=== PATIENT | female | born 1995 | race Caucasian/White ===

== ENCOUNTER 2017-03-19 17:05 | Emergency (ER) | payer OTHER ==
[~2017-03-19] VITALS: Ht 170.2 cm; Wt 103.9 kg
[~2017-03-19 17:05] MED LIST: ATARAX10 MG PO; DESYREL100 MG PO; HYDROXYZINE PAM25 MG PO; LAMICTAL100 MG PO; LAMICTAL150 M1 PO; LAMOTRIGINE25 MG PO; NAPROSYN500 MG PO; RISPERIDONE2 MG PO; SAPHRIS10 MG SL; TRAZODONE HCL50 MG PO
[2017-03-19 17:57] VITALS: BP 131/93
[2017-03-19 18:23] LABS: HEMATOCRIT 39.5 % (36.0-46.0); MCH 28.6 PG (29.0-34.0); MCHC 32.9 G/DL (30.0-36.0); MCV 86.8 FL (83-99); PLATELET COUNT 299 K/uL (156-360); RBC DIS.WIDTH-CV 13.2 % (11.8-14.6); RBC DIS.WIDTH-SD 41.3 % (39-53); RED BLOOD COUNT 4.55 M/uL (3.80-5.20); WHITE BLOOD COUNT 11.3 K/uL (4.1-10.2)
[2017-03-19 18:32] LABS: CHLORIDE 106 mEq/L (99-109); SODIUM 139 mEq/L (136-147)
[2017-03-19 18:34] LABS: GLUCOSE 108 mg/dL (70-99)
[2017-03-19 18:37] LABS: SERUM ETHYL ALCOHOL < 10 mg/dL
[2017-03-19 18:38] LABS: GFR ESTIMATE (CALCULATED) > 59 mL/min/
[2017-03-19 18:39] LABS: UREA NITROGEN (BUN) 8 mg/dL (9-23)
[2017-03-19 19:23] LABS: COCAINE NEGATIVE (150 ng/mL); METHAMPHETAMINE NEGATIVE (500 ng/mL); PHENCYCLIDINE NEGATIVE (25 ng/mL); THC CANNABINOIDS NEGATIVE (50 ng/mL)
[2017-03-19 19:24] LABS: AMPHETAMINE NEGATIVE (500 ng/mL); BARBITURATES NEGATIVE (200 ng/mL); BENZODIAZEPINES NEGATIVE (150 ng/mL); BUPRENORPHINE NEGATIVE (10 ng/mL); METHADONE NEGATIVE (200 ng/mL); OPIATES (MORPHINE) NEGATIVE (100 ng/mL); OXYCODONE NEGATIVE (100 ng/mL); PROPOXYPHENE NEGATIVE (300 ng/mL); TRICYCLIC ANTIDEPRESSANTS NEGATIVE (300 ng/mL)
== END 2017-03-19 22:20 | disposition left against medical advice (07) ==
LOC: EME 17:05
DX: R68.89 Other general symptoms and signs (principal); Z53.21 Procedure and treatment not carried out due to patient leaving prior to being seen by health care provider
CPT/HCPCS: 80048; 85027; G0480

== ENCOUNTER 2017-05-30 10:46 | Emergency (ER) | payer OTHER ==
[~2017-05-30] VITALS: Ht 165.1 cm; Wt 104.4 kg
[2017-05-30 11:18] LABS: BASOPHIL (%) 0.4 % (0-1); EOSINOPHIL (%) 0.1 % (0-5); HEMATOCRIT 38.4 % (36.0-46.0); HEMOGLOBIN 12.9 G/DL (11.9-15.5); IMMATURE GRANULOCYTE (%) 0.4 % (0.0-0.7); LYMPHOCYTE (%) 16.1 % (15-42); LYMPHOCYTE COUNT 1.3 K/uL (1.0-2.8); MCH 29.4 PG (29.0-34.0); MCHC 33.6 G/DL (30.0-36.0); MCV 87.5 FL (83-99); MONOCYTE (%) 4.8 % (3-12); MONOCYTE COUNT 0.4 K/uL (0-0.8); NEUTROPHIL (%) 78.2 % (45-76); NEUTROPHIL COUNT 6.3 K/uL (1.8-6.4); PLATELET COUNT 256 K/uL (156-360); RBC DIS.WIDTH-CV 12.8 % (11.8-14.6); RBC DIS.WIDTH-SD 40.8 % (39-53); RED BLOOD COUNT 4.39 M/uL (3.80-5.20); WHITE BLOOD COUNT 8.1 K/uL (4.1-10.2)
[2017-05-30 11:30] LABS: CHLORIDE 105 mEq/L (99-109); POTASSIUM 4.3 mEq/L (3.7-5.4); SODIUM 139 mEq/L (136-147)
[2017-05-30 11:32] LABS: GLUCOSE 90 mg/dL (70-99)
[2017-05-30 11:35] LABS: SERUM ETHYL ALCOHOL < 10 mg/dL
[2017-05-30 11:36] LABS: CREATININE 1.1 mg/dL (0.6-1.3); GFR ESTIMATE (CALCULATED) > 59 mL/min/
[2017-05-30 11:37] LABS: UREA NITROGEN (BUN) 13 mg/dL (9-23)
[2017-05-30 11:44] LABS: QUANTITATIVE HCG < 4.0 MIU/ML
[2017-05-30 13:03] LABS: APPEARANCE CLEAR ((CLEAR)); BILIRUBIN NEGATIVE; BLOOD LARGE; COLOR YELLOW ((YELLOW)); GLUCOSE (STRIP) NEGATIVE; KETONES NEGATIVE; LEUKOCYTES NEGATIVE; NITRITE NEGATIVE; PROTEIN (STRIP) NEGATIVE; SPECIFIC GRAVITY 1.011 (1.000-1.030); UROBILINOGEN 0.2 MG/DL (0.2-1.0)
[2017-05-30 13:05] LABS: BACTERIA NONE SEEN /HPF; EPITHELIAL CELLS 1+ /HPF; MUCUS 1+ /LPF; RED BLOOD CELLS 40-50 /HPF (0-5); WHITE BLOOD CELLS 0-5 /HPF (0-5)
[2017-05-30 13:11] LABS: AMPHETAMINE NEGATIVE (500 ng/mL); BARBITURATES NEGATIVE (200 ng/mL); BENZODIAZEPINES NEGATIVE (150 ng/mL); COCAINE NEGATIVE (150 ng/mL); METHADONE NEGATIVE (200 ng/mL); METHAMPHETAMINE NEGATIVE (500 ng/mL); OPIATES (MORPHINE) NEGATIVE (100 ng/mL); PHENCYCLIDINE NEGATIVE (25 ng/mL); THC CANNABINOIDS NEGATIVE (50 ng/mL); TRICYCLIC ANTIDEPRESSANTS NEGATIVE (300 ng/mL)
[2017-05-30 13:12] LABS: BUPRENORPHINE NEGATIVE (10 ng/mL); OXYCODONE NEGATIVE (100 ng/mL); PROPOXYPHENE NEGATIVE (300 ng/mL)
[2017-05-30 14:35] VITALS: BP 124/66
== END 2017-05-30 15:03 ==
LOC: EME 10:46
PROVIDERS: Emergency Medicine
DX: R45.850 Homicidal ideations (principal); F84.0 Autistic disorder; F33.1 Major depressive disorder, recurrent, moderate; F90.2 Attention-deficit hyperactivity disorder, combined type; F71 Moderate intellectual disabilities; Z04.6 Encounter for general psychiatric examination, requested by authority; F41.9 Anxiety disorder, unspecified
CPT/HCPCS: 80048; 81003; 84702; 85025; 90837; 99281; 99284; G0480

== ENCOUNTER 2017-06-21 17:16 | Inpatient (IN) | payer OTHER ==
[~2017-06-21] VITALS: Ht 167.6 cm; Wt 97.5 kg
[2017-06-21 17:53] LABS: BASOPHIL (%) 0.2 % (0-1); EOSINOPHIL (%) 0 % (0-5); IMMATURE GRANULOCYTE (%) 0.3 % (0.0-0.7); LYMPHOCYTE (%) 16.6 % (15-42); LYMPHOCYTE COUNT 1.5 K/uL (1.0-2.8); MCH 29.1 PG (29.0-34.0); MCHC 33.3 G/DL (30.0-36.0); MCV 87.2 FL (83-99); MONOCYTE (%) 6.6 % (3-12); MONOCYTE COUNT 0.6 K/uL (0-0.8); NEUTROPHIL (%) 76.3 % (45-76); NEUTROPHIL COUNT 6.7 K/uL (1.8-6.4); PLATELET COUNT 285 K/uL (156-360); RBC DIS.WIDTH-CV 12.8 % (11.8-14.6); RBC DIS.WIDTH-SD 40.6 % (39-53); RED BLOOD COUNT 4.13 M/uL (3.80-5.20); WHITE BLOOD COUNT 8.8 K/uL (4.1-10.2)
[2017-06-21 18:04] LABS: ALBUMIN 4.3 g/dL (3.2-4.8); CHLORIDE 104 mEq/L (99-109); POTASSIUM 4.2 mEq/L (3.7-5.4); SODIUM 139 mEq/L (136-147)
[2017-06-21 18:06] LABS: GLUCOSE 96 mg/dL (70-99); TOTAL PROTEIN 7.5 g/dL (6.4-8.3)
[2017-06-21 18:08] LABS: TOTAL BILIRUBIN 0.2 mg/dL (0.0-1.0)
[2017-06-21 18:09] LABS: SERUM ETHYL ALCOHOL < 10 mg/dL
[2017-06-21 18:10] LABS: ALKALINE PHOSPHATASE 94 IU/L (3-129); CREATININE 1.1 mg/dL (0.6-1.3); GFR ESTIMATE (CALCULATED) > 59 mL/min/
[2017-06-21 18:11] LABS: AST (GOT) 16 IU/L (2-34); UREA NITROGEN (BUN) 12 mg/dL (9-23)
[2017-06-21 18:13] LABS: ALT (GPT) 14 IU/L (3-49)
[2017-06-21 18:19] LABS: QUANTITATIVE HCG < 4.0 MIU/ML
[2017-06-21 18:49] LABS: APPEARANCE CLEAR ((CLEAR)); BILIRUBIN NEGATIVE; BLOOD NEGATIVE; COLOR YELLOW ((YELLOW)); GLUCOSE (STRIP) NEGATIVE; KETONES 20; LEUKOCYTES NEGATIVE; NITRITE NEGATIVE; PROTEIN (STRIP) NEGATIVE; SPECIFIC GRAVITY 1.026 (1.000-1.030); UCUL ADDED? NO; UROBILINOGEN 0.2 MG/DL (0.2-1.0)
[2017-06-21 18:56] LABS: AMPHETAMINE NEGATIVE (500 ng/mL); BARBITURATES NEGATIVE (200 ng/mL); BENZODIAZEPINES NEGATIVE (150 ng/mL); BUPRENORPHINE NEGATIVE (10 ng/mL); COCAINE NEGATIVE (150 ng/mL); METHADONE NEGATIVE (200 ng/mL); METHAMPHETAMINE NEGATIVE (500 ng/mL); OPIATES (MORPHINE) NEGATIVE (100 ng/mL); OXYCODONE NEGATIVE (100 ng/mL); PHENCYCLIDINE NEGATIVE (25 ng/mL); PROPOXYPHENE NEGATIVE (300 ng/mL); THC CANNABINOIDS NEGATIVE (50 ng/mL); TRICYCLIC ANTIDEPRESSANTS NEGATIVE (300 ng/mL)
[2017-06-21] MEDS ORDERED: LAMOTRIGINE100 MG PO (19:19)
[2017-06-21] MEDS ORDERED: RISPERDAL1 MG PO (19:20)
[2017-06-21] MEDS ORDERED: RISPERDAL3 MG PO (19:20)
[2017-06-21] MEDS ORDERED: METFORMIN HCL500 MG PO (19:20)
[2017-06-21 21:30] VITALS: BP 134/81
[2017-06-22 09:33] VITALS: BP 85/40
[2017-06-22 15:29] VITALS: BP 134/58
[2017-06-23 15:21] VITALS: BP 119/84
[2017-06-24 07:39] VITALS: BP 100/52
[2017-06-24 15:19] VITALS: BP 132/63
[2017-06-25 07:15] VITALS: BP 103/55
[2017-06-25] MEDS ORDERED: HYDROXYZINE PAM25 MG PO (09:26)
[2017-06-25] MEDS ORDERED: SERTRALINE HCL50 MG PO (09:26)
[2017-06-25] MEDS ORDERED: LAMOTRIGINE150 MG PO (09:26)
== END 2017-06-25 14:27 | disposition home or self-care (01) | DRG 883 ==
LOC: EME 17:16 → EDOF 20:15 → 1WEST 20:15 → ENRESERV 20:46 → 1WEST 21:11
PROVIDERS: Emergency Medicine
DX: F60.3 Borderline personality disorder (principal); R45.850 Homicidal ideations; F63.81 Intermittent explosive disorder; R44.3 Hallucinations, unspecified; E11.9 Type 2 diabetes mellitus without complications; G47.00 Insomnia, unspecified; F43.10 Post-traumatic stress disorder, unspecified; F34.1 Dysthymic disorder; H54.8 Legal blindness, as defined in USA; F84.0 Autistic disorder; F79 Unspecified intellectual disabilities; E66.9 Obesity, unspecified; F41.0 Panic disorder [episodic paroxysmal anxiety]; Z68.34 Body mass index [BMI] 34.0-34.9, adult; Z81.8 Family history of other mental and behavioral disorders; X83.8XXA Intentional self-harm by other specified means, initial encounter
CPT/HCPCS: 80053; 81003; 84702; 85025; 90837; 97150 GO; 97165 GO; 99281; 99285; G0480; Q0177

== ENCOUNTER 2017-07-31 13:38 | Inpatient (IN) | payer OTHER ==
[~2017-07-31] VITALS: Ht 167.6 cm; Wt 97.7 kg
[~2017-07-31 13:38] MED LIST changes: -DESYREL100 MG PO; +LAMOTRIGINE100 MG PO; +LAMOTRIGINE150 MG PO; +SERTRALINE HCL50 MG PO
[2017-07-31 14:20] LABS: BILIRUBIN NEGATIVE; BLOOD NEGATIVE; COLOR YELLOW ((YELLOW)); GLUCOSE (STRIP) NEGATIVE; KETONES NEGATIVE; LEUKOCYTES NEGATIVE; NITRITE NEGATIVE; PROTEIN (STRIP) 30; SPECIFIC GRAVITY 1.027 (1.000-1.030)
[2017-07-31 14:23] LABS: APPEARANCE CLEAR ((CLEAR))
[2017-07-31 14:32] LABS: HEMATOCRIT 35.7 % (36.0-46.0); HEMOGLOBIN 12.1 G/DL (11.9-15.5); MCH 29.3 PG (29.0-34.0); MCHC 33.9 G/DL (30.0-36.0); MCV 86.4 FL (83-99); PLATELET COUNT 252 K/uL (156-360); RBC DIS.WIDTH-CV 12.9 % (11.8-14.6); RBC DIS.WIDTH-SD 40.6 % (39-53); RED BLOOD COUNT 4.13 M/uL (3.80-5.20); WHITE BLOOD COUNT 8.5 K/uL (4.1-10.2)
[2017-07-31 14:34] LABS: AMPHETAMINE NEGATIVE (500 ng/mL); BARBITURATES NEGATIVE (200 ng/mL); BENZODIAZEPINES NEGATIVE (150 ng/mL); BUPRENORPHINE NEGATIVE (10 ng/mL); COCAINE NEGATIVE (150 ng/mL); METHADONE NEGATIVE (200 ng/mL); METHAMPHETAMINE NEGATIVE (500 ng/mL); OPIATES (MORPHINE) NEGATIVE (100 ng/mL); OXYCODONE NEGATIVE (100 ng/mL); PHENCYCLIDINE NEGATIVE (25 ng/mL); PROPOXYPHENE NEGATIVE (300 ng/mL); THC CANNABINOIDS NEGATIVE (50 ng/mL); TRICYCLIC ANTIDEPRESSANTS NEGATIVE (300 ng/mL)
[2017-07-31 14:44] LABS: CHLORIDE 107 mEq/L (99-109); POTASSIUM 4.1 mEq/L (3.7-5.4); SODIUM 139 mEq/L (136-147)
[2017-07-31 14:46] LABS: GLUCOSE 96 mg/dL (70-99); TOTAL PROTEIN 7.2 g/dL (6.4-8.3)
[2017-07-31 14:48] LABS: TOTAL BILIRUBIN 0.3 mg/dL (0.0-1.0)
[2017-07-31 14:49] LABS: ALKALINE PHOSPHATASE 84 IU/L (3-129); SERUM ETHYL ALCOHOL < 10 mg/dL
[2017-07-31 14:50] LABS: CREATININE 1.1 mg/dL (0.6-1.3); GFR ESTIMATE (CALCULATED) > 59 mL/min/
[2017-07-31 14:51] LABS: AST (GOT) 18 IU/L (2-34); UREA NITROGEN (BUN) 10 mg/dL (9-23)
[2017-07-31 14:53] LABS: ALT (GPT) 20 IU/L (3-49)
[2017-07-31 15:00] LABS: QUANTITATIVE HCG < 4.0 MIU/ML
[2017-07-31] MEDS ORDERED: REMERON15 M2 PO (17:17)
[2017-07-31] MEDS ORDERED: LIDOCARE1 EACH TP (17:18)
[2017-07-31] MEDS ORDERED: IMITREX50 MG PO (17:19)
[2017-07-31] MEDS ORDERED: IRON 100 PLUS1 EACH PO (17:21)
[2017-07-31] MEDS ORDERED: GLUCOTROL XL2.5 MG PO (17:21)
[2017-07-31] MEDS ORDERED: LOPRESSOR50 MG PO (17:22)
[2017-07-31] MEDS ORDERED: KLOR-CON 1010 ME1 PO (17:22)
[2017-07-31] MEDS ORDERED: SIMVASTATIN10 MG PO (17:23)
[2017-07-31] MEDS ORDERED: MIRAPEX0.5 MG PO (17:23)
[2017-07-31] MEDS ORDERED: SEROQUEL12.5 MG PO (17:24)
[2017-07-31] MEDS ORDERED: SEROQUEL XR50 MG PO (17:24)
[2017-07-31] MEDS ORDERED: EFFEXOR XR37.5 MG PO (17:25)
[2017-07-31 17:34] VITALS: BP 124/83
[2017-07-31 17:36] VITALS: BP 124/83
[2017-07-31] MEDS ORDERED: RISPERDAL3 MG PO (18:31)
[2017-07-31] MEDS ORDERED: RISPERDAL1 MG PO (18:31)
[2017-07-31] MEDS ORDERED: LAMOTRIGINE150 MG PO (18:35)
[2017-07-31] MEDS ORDERED: DESYREL100 MG PO (18:36)
[2017-07-31] MEDS ORDERED: METFORMIN HCL500 MG PO (18:37)
[2017-07-31] MEDS ORDERED: SERTRALINE HCL50 MG PO (18:49)
[2017-08-01 08:01] VITALS: BP 110/53
[2017-08-01 16:08] VITALS: BP 122/77
[2017-08-02 07:47] VITALS: BP 125/74
[2017-08-02] MEDS ORDERED: SERTRALINE HCL100 MG PO (11:06)
[2017-08-02] MEDS ORDERED: RISPERDAL3 MG PO (14:07)
== END 2017-08-02 14:47 | disposition home or self-care (01) | DRG 885 ==
LOC: EME 13:38 → 1WEST 16:34 → EDOF 16:34 → ENRESERV 16:56 → 1WEST 17:27
PROVIDERS: Emergency Medicine
DX: F34.81 Disruptive mood dysregulation disorder (principal); F71 Moderate intellectual disabilities; F84.0 Autistic disorder; F90.9 Attention-deficit hyperactivity disorder, unspecified type; F63.81 Intermittent explosive disorder; R45.851 Suicidal ideations; E11.9 Type 2 diabetes mellitus without complications; H35.50 Unspecified hereditary retinal dystrophy
CPT/HCPCS: 80053; 81003; 84702; 85027; 90837; 99281; 99285; G0480; Q0177

== ENCOUNTER 2017-09-16 17:57 | Inpatient (IN) | payer OTHER ==
[~2017-09-16] VITALS: Ht 167.6 cm; Wt 105.1 kg
[~2017-09-16 17:57] MED LIST changes: +DESYREL100 MG PO; +EFFEXOR XR37.5 MG PO; +GLUCOTROL XL2.5 MG PO; +IMITREX50 MG PO; +IRON 100 PLUS1 EACH PO; +KLOR-CON 1010 ME1 PO; +LIDOCARE1 EACH TP; +LOPRESSOR50 MG PO; +METFORMIN HCL500 MG PO; +MIRAPEX0.5 MG PO; +REMERON15 M2 PO; +RISPERDAL1 MG PO; +RISPERDAL3 MG PO; +SEROQUEL XR50 MG PO; +SEROQUEL12.5 MG PO; +SERTRALINE HCL100 MG PO; +SIMVASTATIN10 MG PO
[2017-09-16 21:00] LABS: BASOPHIL (%) 0.2 % (0-1); EOSINOPHIL (%) 0 % (0-5); HEMATOCRIT 37.2 % (36.0-46.0); HEMOGLOBIN 12.3 G/DL (11.9-15.5); IMMATURE GRANULOCYTE (%) 0.3 % (0.0-0.7); LYMPHOCYTE (%) 19.1 % (15-42); LYMPHOCYTE COUNT 1.7 K/uL (1.0-2.8); MCHC 33.1 G/DL (30.0-36.0); MCV 87.7 FL (83-99); MONOCYTE (%) 5.2 % (3-12); MONOCYTE COUNT 0.5 K/uL (0-0.8); NEUTROPHIL (%) 75.2 % (45-76); NEUTROPHIL COUNT 6.7 K/uL (1.8-6.4); PLATELET COUNT 272 K/uL (156-360); RBC DIS.WIDTH-CV 13.4 % (11.8-14.6); RBC DIS.WIDTH-SD 42.8 % (39-53); RED BLOOD COUNT 4.24 M/uL (3.80-5.20); WHITE BLOOD COUNT 8.9 K/uL (4.1-10.2)
[2017-09-16 21:41] LABS: QUANTITATIVE HCG < 4.0 MIU/ML
[2017-09-16 21:57] LABS: ALBUMIN 4.2 G/DL (3.2-4.8); CHLORIDE 105 MEQ/L (99-109); SODIUM 139 MEQ/L (136-147); TOTAL BILIRUBIN 0.3 MG/DL (0.0-1.0)
[2017-09-16 22:16] LABS: ALKALINE PHOSPHATASE 81 IU/L (3-129); ALT (GPT) 13 IU/L (3-49); AST (GOT) 13 IU/L (2-34); CREATININE 1.1 MG/DL (0.6-1.3); GFR ESTIMATE (CALCULATED) > 59 mL/min/; GLUCOSE 95 mg/dL (70-99); SERUM ETHYL ALCOHOL < 10 mg/dL; TOTAL PROTEIN 7.4 G/DL (6.4-8.3); UREA NITROGEN (BUN) 13 mg/dL (9-23)
[2017-09-17 01:27] LABS: APPEARANCE SL.HAZY ((CLEAR)); BILIRUBIN NEGATIVE; BLOOD NEGATIVE; COLOR YELLOW ((YELLOW)); GLUCOSE (STRIP) NEGATIVE; KETONES NEGATIVE; LEUKOCYTES NEGATIVE; NITRITE NEGATIVE; PROTEIN (STRIP) 30; SPECIFIC GRAVITY 1.028 (1.000-1.030); UROBILINOGEN 0.2 MG/DL (0.2-1.0)
[2017-09-17 01:32] LABS: BACTERIA NONE SEEN /HPF; EPITHELIAL CELLS 2+ /HPF; MUCUS 1+ /LPF; RED BLOOD CELLS 0-5 /HPF (0-5); UCUL ADDED? NO; WHITE BLOOD CELLS 0-5 /HPF (0-5)
[2017-09-17 01:35] LABS: AMPHETAMINE NEGATIVE (500 ng/mL); BARBITURATES NEGATIVE (200 ng/mL); BENZODIAZEPINES NEGATIVE (150 ng/mL); COCAINE NEGATIVE (150 ng/mL); METHADONE NEGATIVE (200 ng/mL); METHAMPHETAMINE NEGATIVE (500 ng/mL); OPIATES (MORPHINE) NEGATIVE (100 ng/mL); PHENCYCLIDINE NEGATIVE (25 ng/mL); THC CANNABINOIDS NEGATIVE (50 ng/mL); TRICYCLIC ANTIDEPRESSANTS NEGATIVE (300 ng/mL)
[2017-09-17 01:36] LABS: BUPRENORPHINE NEGATIVE (10 ng/mL); OXYCODONE NEGATIVE (100 ng/mL); PROPOXYPHENE NEGATIVE (300 ng/mL)
[2017-09-17 02:40] VITALS: BP 130/73
[2017-09-17 07:55] VITALS: BP 99/55
[2017-09-17 16:04] VITALS: BP 116/71
[2017-09-18 08:01] VITALS: BP 111/58
== END 2017-09-18 14:21 | disposition home or self-care (01) | DRG 885 ==
LOC: EME 17:57 → EDOF 09-17 00:12 → 1WEST 09-17 00:12 → ENRESERV 09-17 01:37 → 1WEST 09-17 01:37
PROVIDERS: Emergency Medicine; Psychiatry & Neurology Psychiatry
DX: F34.81 Disruptive mood dysregulation disorder (principal); F71 Moderate intellectual disabilities; F84.0 Autistic disorder; F90.9 Attention-deficit hyperactivity disorder, unspecified type; F63.81 Intermittent explosive disorder; R45.851 Suicidal ideations
CPT/HCPCS: 80053; 81003; 82948; 84484; 84702; 85025; 90837; 99281; 99285; G0480; Q0177